=== PATIENT | male | born 1970 | race Caucasian/White ===

== ENCOUNTER 2019-08-13 07:23 | Outpatient (CLI) | payer OTHER | END 2019-08-17 17:00 | disposition home or self-care (01) | LOC: TOM 07:23 | DX: R31.29 Other microscopic hematuria (principal) ==

== ENCOUNTER 2022-07-05 07:24 | Outpatient (CLI) | payer OTHER | END 2022-07-05 15:45 | disposition home or self-care (01) | LOC: SONOGRAMA 07:24 | PROVIDERS: ATTEND Internal Medicine | DX: N18.31 Chronic kidney disease, stage 3a (principal); R31.29 Other microscopic hematuria ==